=== PATIENT | male | born 1980 | race Caucasian/White ===

== ENCOUNTER 2020-06-02 10:08 | Emergency (ER) | payer OTHER ==
[~2020-06-02] VITALS: Ht 177.8 cm; Wt 98.2 kg
--- NOTE | 2020-06-02 10:19 | PHYS DOC ---
General Adult EDM: Chief Complaint: ANXIETY/PANIC ATTACK HPI: HPI: History gained from patient. Patient is a 40-year-old male with no reported past medical history presents with chief complaint of palpitations. He states the palpitations began suddenly while in the shower probably 2 hours prior to arrival. He states he continued after he arrived at work. He noted that he was breathing quite fast. He also reported some lightheadedness, dizziness, and tingling sensation in his hands and feet. He states this is happened before but not quite as severe. Denies any formal diagnosis of anxiety. States that he typically drinks 2 monster energy drinks every day at this point in the day. He states he did drink his 2 monster drinks today. He states he never had symptoms related to caffeine usage in the past. 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 Denies drug or alcohol usage. 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 He states that when he does perform physical therapy he never gets chest pain or shortness of breath. He states he noted a very brief 1 to 2-second episode of sharp chest pain during the palpitations that is since resolved. Denies any family history of cardiac disease. Denies suicidal homicidal ideations. Patient denies any history of immobilization greater than 48 hours, recent hospitalizations, recent surgery, recent trauma, , oral contraceptive usage, hormone replacement therapy, air travel greater than 8 hours, recent infectious disease, or general deterioration of their overall condition. Review of Systems: Review of Systems: Constitutional: Denies fever or chills Eyes: Denies change in visual acuity HENT: Denies nasal congestion or sore throat Respiratory: Denies cough or shortness of breath Cardiovascular: Denies chest pain or edema GI: Denies abdominal pain, nausea, vomiting, bloody stools or diarrhea : Denies dysuria Musculoskeletal: Denies back pain or joint pain Integument: Denies rash Neurologic: Denies headache, focal weakness or sensory changes Endocrine: Denies polyuria or polydipsia Lymphatic: Denies swollen glands Psychiatric: Positive for anxiety Allergies: Allergies: Allergies Coded Allergies Type Severity Reaction Last Updated Verified No Known Drug Allergies 06/02/20 No Physical Exam: PE: Constitutional: Well developed, well nourished, no acute distress, non-toxic appearance. [] HENT: Normocephalic, atraumatic, bilateral external ears normal, oropharynx moist, no oral exudates, nose normal. [] Eyes: PERRLA, EOMI, conjunctiva normal, no discharge. [] Neck: Normal range of motion, no tenderness, supple, no stridor. [] Cardiovascular:Heart rate regular rhythm, no murmur [] Lungs & Thorax: Bilateral breath sounds clear to auscultation. Rapid shallow breaths. [] Abdomen: soft, no tenderness, no masses, no pulsatile masses. [] Skin: Warm, dry, no erythema, no rash. [] Back: No tenderness, no CVA tenderness. [] Extremities: No tenderness, no cyanosis, no clubbing, ROM intact, no edema. [] Neurologic: Alert and oriented X 3, normal motor function, normal sensory function, no focal deficits noted. [] Psychologic: Anxious appearing Current Patient Data: Labs: Laboratory Tests Test 06/02/20 10:30 White Blood Count 7.0 x10^3/uL Red Blood Count 5.34 x10^6/uL Hemoglobin 16.4 g/dL Hematocrit 47.1 % Mean Corpuscular Volume 88 fL Mean Corpuscular Hemoglobin 31 pg Mean Corpuscular Hemoglobin Concent 35 g/dL Red Cell Distribution Width 12.2 % Platelet Count 289 x10^3/uL Neutrophils (%) (Auto) 68 % Lymphocytes (%) (Auto) 25 % Monocytes (%) (Auto) 6 % Eosinophils (%) (Auto) 1 % Basophils (%) (Auto) 1 % Neutrophils # (Auto) 4.8 x10^3uL Lymphocytes # (Auto) 1.8 x10^3/uL Monocytes # (Auto) 0.4 x10^3/uL Eosinophils # (Auto) 0.0 x10^3/uL Basophils # (Auto) 0.0 x10^3/uL Sodium Level 134 mmol/L Potassium Level 3.8 mmol/L Chloride Level 97 mmol/L Carbon Dioxide Level 22 mmol/L Anion Gap 15 Blood Urea Nitrogen 24 mg/dL Creatinine 1.3 mg/dL Estimated GFR (Cockcroft-Gault) 61.5 Glucose Level 140 mg/dL Calcium Level 10.3 mg/dL Troponin I Quantitative 0.041 ng/mL Current Medications Medications (Trade) Dose Ordered Sig/Morris Route PRN Reason Start Time Stop Time Status Last Admin Dose Admin Lorazepam (Ativan) 1 mg 1X ONCE PO 06/02/20 10:30 06/02/20 10:31 DC 06/02/20 10:26 Vital Signs: Vital Signs Date Time Temp Pulse Resp B/P (MAP) Pulse Ox O2 Delivery O2 Flow Rate FiO2 06/02/20 11:09 64 14 139/74 (95) 99 Room Air 06/02/20 10:17 98.4 79 14 141/80 (100) 100 Room Air EKG: EKG: [] Normal EKG. Radiology/Procedures: Radiology/Procedures: [] Heart Score: HEART Score for Chest Pain: HEART Score for Chest Pain Response (Comments) Value History Slighlty/Non-Suspicious 0 ECG Normal 0 Age < 45 0 Risk Factors No Risk Factors 0 Troponin < Normal Limit 0 Total 0 Risk Factors: Risk Factors: DM, Current or recent (<one month) smoker, HTN, HLP, family history of CAD, obesity. Risk Scores: Score 0 - 3: 2.5% MACE over next 6 weeks - Discharge Home Score 4 - 6: 20.3% MACE over next 6 weeks - Admit for Clinical Observation Score 7 - 10: 72.7% MACE over next 6 weeks - Early Invasive Strategies Course & Med Decision Making: Course & Med Decision Making Pertinent Labs and Imaging studies reviewed. (See chart for details) [] Patient is an anxious appearing 40-year-old male who presents with chief complaint of palpitations. Initial vital signs unremarkable. Physical exam notable for rapidly breathing somewhat anxious appearing male. Patient signs symptoms are most likely due to anxiety attack. Overall low suspicion for cardiac etiology. Initial troponin was detectable at 0.041. I did discuss the results of labs and imaging in great detail with the patient. I did explain that we cannot fully exclude cardiac etiology without repeat troponin testing..he has no risk factors for coronary artery disease. Furthermore he does exercise regularly without any symptoms. EKG unremarkable. PERC negative. Patient was given oral Ativan and did note resolution of his symptoms. Repeat examination he is resting much more comfortably. Overall I do feel is appropriate for discharge home. Patient is requesting to be discharged home without repeat troponin testing. Overall very low suspicion for coronary artery disease. Low risk heart score. Utilizing shared decision making patient will be discharged home. He will be discharged home with a short course of hydroxyzine. Return precautions discussed and understood. Struck to follow-up with primary care physician in the next 2 to 3 days. Stable for discharge home. Monion Disclaimer: Shai Disclaimer: This electronic medical record was generated, in whole or in part, using a voice recognition dictation system. Departure Departure: Impression: Primary Impression: Palpitations Disposition: 01 DC HOME SELF CARE/HOMELESS Condition: STABLE Referrals: HAYLEE HUNT MD Patient Instructions: Anxiety and Panic Attacks Additional Instructions: Please follow-up with your primary care physician in the next 2 to 3 days. Scripts Hydroxyzine Hcl (HYDROXYZINE HCL) 25 Mg Tablet 1 TAB PO TID PRN PRN for ANXIETY, #20 TAB Prov: KILEY BOYCE DO 06/02/20 KILEY BOYCE DO Jun 02, 2020 10:19
[2020-06-02] MEDS ORDERED: LORazepam 1 MG TABLET PO ONE (10:30)
[2020-06-02 10:45] LABS: BASO % 1 % (0-3); EOS % 1 % (0-3); HEMATOCRIT 47.1 % (39.0-53.0); HEMOGLOBIN 16.4 g/dL (13.0-17.5); LYMPH # 1.8 x10^3/uL (1.0-4.8); LYMPH % 25 % (24-48); MEAN CORPUSCULAR HEMOGLOBIN 31 pg (25-35); MEAN CORPUSCULAR HGB CONC 35 g/dL (31-37); MEAN CORPUSCULAR VOLUME 88 fL (79-100); MONO # 0.4 x10^3/uL (0.0-1.1); MONO % 6 % (0-9); NEUT # 4.8 x10^3uL (1.8-7.7); NEUT % 68 % (31-73); PLATELET COUNT 289 x10^3/uL (140-400); RED BLOOD COUNT 5.34 x10^6/uL (4.30-5.70); RED CELL DISTRIBUTION WIDTH 12.2 % (11.5-14.5)
[2020-06-02 10:47] LABS: CALCIUM 10.3 mg/dL (8.5-10.1); CREATININE 1.3 mg/dL (0.7-1.3); GFR 61.5; POTASSIUM 3.8 mmol/L (3.5-5.1)
[2020-06-02] MEDS ORDERED: HYDR25TA PO (10:56)
--- NOTE | 2020-06-02 11:01 | EKG ---
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
[2020-06-02 11:09] VITALS: BP 139/74
== END 2020-06-02 11:15 | disposition home or self-care (01) ==
LOC: ER 10:08
DX: R00.2 Palpitations (principal); R42 Dizziness and giddiness; R20.2 Paresthesia of skin
CPT/HCPCS: 36415; 80048; 84484; 85025; 93005; 99284